=== PATIENT | female | born 1970 | race African-American/Black ===

== ENCOUNTER 2017-10-09 14:46 | Observation (INO) ==
[2017-10-09] MEDS ORDERED: 0.9 % Sodium Chloride 1,000 ML IVC ONE (14:58)
--- NOTE | 2017-10-09 15:20 | Emergency Department Note ---
Disposition Clinical Impression: Bradycardia, Dizziness Disposition: Admitted As Inpatient Condition: Good Referrals: Nai Burns MD [Non-Partnered Physician] - Forms: ED Satisfaction Letter Time of Disposition: 16:30 General Adult HPI - General Chief complaint: ED Arrhythmia/Palpitations Stated complaint: bradycardia Time Seen by Provider: 10/09/17 14:52 Source: patient, family Mode of arrival: ambulatory Limitations: no limitations Nursing Notes Reviewed: Yes Vital Signs Reviewed: Yes - History of Present Illness HPI Narrative: 47 year old female presented to the emergency department with chief complaint of bradycardia. Patient states she saw her primary care physician yesterday who completed an EKG and was told she was bradycardic. He was told to come to the emergency department but she was asymptomatic therefore she did not. Today while at work she was lifting up dough and started feeling dizzy and having chest pain. She states is the first time she has had symptoms. She is asymptomatic now. She states she does have rheumatoid arthritis but no other significant past medical history. She denies any other cardiac history. Pain Scale: 0 - Related Data Home Medications Medication Instructions Recorded Confirmed Folic Acid 1 mg PO DAILY 10/09/17 10/09/17 Methotrexate [Otrexup] 20 mg PO QWEEK 10/09/17 10/09/17 Allergies Allergy/AdvReac Type Severity Reaction Status Date / Time No Known Allergies Allergy Verified 10/09/17 14:46 All systems ED: reviewed and negative except as stated. Constitutional: Denies: fever, chills Eyes: Reports: as per HPI ENT ED: Reports: as per HPI Cardiovascular: Reports: chest pain. Denies: palpitations Respiratory: Denies: cough, dyspnea, wheezes Gastrointestinal: Denies: abdominal pain, nausea, vomiting Genitourinary: Reports: as per HPI Musculoskeletal: Reports: as per HPI Integumentary: Denies: rash, abrasion Neurological: Reports: as per HPI Psychiatric: Reports: as per HPI Endocrine: Reports: as per HPI Hematological/Lymphatic: Reports: as per HPI Allergic/Immunologic: Reports: as per HPI Past Medical History - Past Medical History Attestation: Yes The following information was validated with the patient. Medical history: Reports: arthritis Psychiatric history: Reports: anxiety OUTDOOR RECREATION SPECIALIST history: Reports: no OUTDOOR RECREATION SPECIALIST history - Social History Smoking Status: Current every day smoker Smokeless Tobacco Status: No Alcohol use: Reports: occasionally Drug use: Reports: marijuana Physical Exam - General Limitations: no limitations General appearance: alert, in no apparent distress - Head Head exam: atraumatic, normocephalic, normal inspection - Eye Eye exam: Present: normal appearance. Absent: scleral icterus, conjunctival injection - Chest Chest inspection: Present: normal inspection, symmetric chest wall rise. Absent : tenderness, rash - Respiratory Respiratory exam: Present: normal lung sounds bilaterally. Absent: respiratory distress, wheezes - Cardiovascular Cardiovascular exam: Present: normal rhythm, bradycardia, normal heart sounds - Abdominal Exam Abdominal exam: Present: soft, Non-Tender. Absent: distention, guarding, rebound - Extremities Exam Extremities exam: Present: normal inspection, full ROM - Neurological Exam Neurological exam: Present: alert, oriented X3 - Psychiatric Psychiatric exam: Present: normal affect, normal mood - Skin Skin exam: Present: warm, intact Course Course Narrative: 47-year-old female presenting to the emergency Department chief complaint of symptomatic bradycardia. Patient's heart rate 49 in the room. She denies any complaints or symptoms at this time. We will obtain basic labs including troponin and a chest x-ray. Disposition most likely will be admission due to the symptomatic bradycardia. Patient is alert and oriented 3 in the room. She is bradycardic but vital signs are otherwise stable. She agrees to this plan. - Reevaluation(s) Reevaluation #1: All of patient's lab work within normal limits. Chest x-ray within normal limits. We will admit the patient this time for symptomatic bradycardia. She is alert and oriented 3 in the room with stable vital signs throughout her stay. She has been asymptomatic throughout her ER stay. She agrees with this plan. I spoke with the hospitalist on-call Dr. Rodriguez who agrees to accept the patient at this time. Vital Signs Temperature 97.9 F 10/09/17 14:47 Pulse Rate 51 10/09/17 14:47 Respiratory Rate 15 10/09/17 14:47 Blood Pressure 161/107 10/09/17 14:47 O2 Sat by Pulse Oximetry 100 10/09/17 14:47 Temperature 97.9 F 10/09/17 14:47 Pulse Rate 43 10/09/17 15:30 Respiratory Rate 16 10/09/17 15:30 Blood Pressure 151/106 10/09/17 15:30 O2 Sat by Pulse Oximetry 100 10/09/17 15:30 Oxygen Delivery Oxygen Delivery Room Air Medical Decision Making - Lab Data Result diagrams: 10/09/17 15:23 10/09/17 15:23 Lab Results 10/09/17 10/09/17 10/09/17 Range/Units 15:23 15:23 15:23 WBC 5.1 (4.3-11.1) K/mcL RBC 4.08 (3.82-4.97) M/mcL Hgb 12.6 (11.5-15.4) g/dL Hct 38.7 (35.3-44.9) % MCV 94.9 (83.0-100.0) fL MCH 30.9 (28.0-33.3) pg MCHC 32.6 (31.6-35.5) g/dL RDW 15.5 H (11.5-14.5) % Plt Count 207 (140-400) K/mcL MPV 10.1 (9.4-12.4) fL Immature Gran % 0.2 (0-4) % Seg Neutrophils % 55.5 % Lymphocytes % 35.0 % Monocytes % 7.9 % Eosinophils % 1.0 % Basophils % 0.4 % Neutrophils # 2.8 (1.6-8.9) K/mcL Lymphocytes # 1.8 (0.6-4.6) K/mcL Monocytes # 0.4 (0.0-1.3) K/mcL Eosinophils # 0.1 (0.0-0.6) K/mcL Basophils # 0.0 (0.0-0.2) K/mcL Sodium 137 (136-145) mEq/L Potassium 3.9 (3.5-4.5) mEq/L Chloride 104 (98-109) mEq/L Carbon Dioxide 27 (19-29) mEq/L BUN 13 (7-20) mg/dL Creatinine 0.87 (0.57-1.11) mg/dL Est GFR ( Amer) > 60 (> 60) Est GFR (Non-Af Amer) > 60 (> 60) BUN/Creatinine Ratio 15 (6-26) Glucose 91 (70-99) mg/dL Calculated Osmolality 284 (280-300) Calcium 8.8 (8.6-10.8) mg/dL Magnesium 1.8 (1.6-2.6) mg/dL Troponin I 0.01 (0-0.03) ng/mL TSH 0.936 (0.350-4.840) mcIU/mL - EKG Data EKG #1 EKG attestation: Yes I reviewed and interpreted this EKG. EKG results narrative: Sinus bradycardia. Occasional PVCs. 49 bpm. IA interval 195, QRS 101, QTc 408. No signs of acute ST segment elevation or ischemia noted.
[2017-10-09 15:28] LABS: Basophils % 0.4 %; Eosinophils # 0.1 K/mcL (0.0-0.6); Hematocrit 38.7 % (35.3-44.9); Hemoglobin 12.6 g/dL (11.5-15.4); Immature Granulocytes % 0.2 % (0-4); Lymphocytes # 1.8 K/mcL (0.6-4.6); Mean Corpuscular HGB Conc 32.6 g/dL (31.6-35.5); Mean Corpuscular Hemoglobin 30.9 pg (28.0-33.3); Mean Corpuscular Volume 94.9 fL (83.0-100.0); Mean Platelet Volume 10.1 fL (9.4-12.4); Monocytes # 0.4 K/mcL (0.0-1.3); Monocytes % 7.9 %; Neutrophils # 2.8 K/mcL (1.6-8.9); Platelet Count 207 K/mcL (140-400); Red Blood Count 4.08 M/mcL (3.82-4.97); Red Cell Distribution Width 15.5 % (11.5-14.5); Segmented Neutrophils % 55.5 %
[2017-10-09 15:39] LABS: BUN/Creatinine Ratio 15 (6-26); Blood Urea Nitrogen 13 mg/dL (7-20); Calcium 8.8 mg/dL (8.6-10.8); Carbon Dioxide 27 mEq/L (19-29); Chloride 104 mEq/L (98-109); Glucose 91 mg/dL (70-99); Magnesium 1.8 mg/dL (1.6-2.6); Osmolality,Calculated 284 (280-300); Potassium 3.9 mEq/L (3.5-4.5); Sodium 137 mEq/L (136-145); eGFR For African Americans > 60 (> 60); eGFR For Non-African Americans > 60 (> 60)
--- NOTE | 2017-10-09 15:46 | Emergency Department Note ---
START Narrative - START START: I examined this patient and my medical decision-making was reviewed with the Resident Physician. I agree with the documented findings, disposition and treatment plan as described except to the extent set forth below. 47-year-old female presents to ER with bradycardia. Patient's heart rate was found to be in the 40s and she was symptomatic with this earlier. No history of heart problems. Denies any supplements. No medications for her heart that would affect her heart rate. No illness. No other complaints other than she feels slightly weak and dizzy with this low heart rate. Patient will need to be admitted as her heart rate has been in the 40s at times. She has no documented history of this in the past. Anticipate observation.
[2017-10-09 16:02] LABS: Thyroid Stimulating Hormone 0.936 mcIU/mL (0.350-4.840)
[2017-10-09] MEDS ORDERED: Ondansetron 4 MG/2 ML VIAL IVP PRN (17:48)
[2017-10-09] MEDS ORDERED: *HR* Morphine 2 MG/ML SYRINGE IVP PRN (17:48)
[2017-10-09] MEDS ORDERED: Naloxone 0.4 MG/ML INJ IVP PRN (17:48)
--- NOTE | 2017-10-09 17:57 | Internal Med History&Physical ---
<Chang Sánchez J - Last Filed: 10/09/17 17:54> Date of Encounter: 10/09/17 Time of Encounter: 17:54 Assessment and Plan (1) Bradycardia Current visit: Yes Status: Acute Rhythm remains sinus, She is no longer symptomatic, and is hemodynamically stable. Consulted cardiology, spoke with Dr. Schneider agrees to see patient in the morning. Continue with discussed cardiac workup including echocardiogram, stress test in the morning Trend troponins, nothing by mouth after midnight Continuous telemetry, continuous O2 monitoring (2) Chest pain Current visit: Yes Status: Acute She reports a one time event of left-sided sharp chest pain with radiation to mid back. She reports that the chest pain subsided prior to arrival, and has not returned. No history of prior DE. She does report a remote history of CHF she says was caused by previous substance abuse. She denies any current substance abuse, has not had any recent cardiac workup. See plan above Qualifiers: Chest pain type: unspecified Qualified Code(s): R07.9 - Chest pain, unspecified (3) Dizziness Current visit: Yes Status: Acute Has resolved since admission. (4) HTN (hypertension) Current visit: Yes Status: Acute Reports no prior history of hypertension. She has been hypertensive since her arrival, systolic blood pressures in the 160s and 170s. We will continue to monitor and trend blood pressure. Start hydralazine IV push 5 mg every 6 hours when necessary for SBP greater than 160 Qualifiers: Hypertension type: essential hypertension Qualified Code(s): I10 - Essential (primary) hypertension (5) DVT prophylaxis Current visit: Yes Status: Acute Heparin 5000 units subcutaneous twice a day Internal Medicine - H&P: HPI Chief complaint: Chest pain and new symptomatic bradycardia Admitted From: Home Plans for Post Hospital Care: Home History of present illness: Ms. Crabtree is a 47 year old female with past medical history of rheumatoid arthritis and anxiety and congestive heart failure. She is a current daily half pack per day smoker for the last 25 years and daily marijuana user as well as occasional drinker. She reports that yesterday while at her primary care provider's office for regular checkup she was found to be bradycardic. She was advised to go to the emergency room at that time and instead went home as she was asymptomatic. She reports that today while at work she began feeling dizzy and experienced some left-sided sharp chest pain with radiation to the back. She reports chest pain lasted just a few short minutes has since subsided. She has decided to come to the emergency department further workup and evaluation. She denies any diaphoresis, nausea, extremity swelling, syncope or SOB. D/T new symptomatic bradycardia, CP h/o CHF she is being admitted for continued workup and observation. Past Med Surg Social Fam HX - Past Medical History Medical history: arthritis Psychiatric history: anxiety - Social History Smoking Status: Current every day smoker Smokeless Tobacco Status: No Alcohol use: occasionally Drug use: marijuana - Additional Family History Additional family history: Noncontributory Internal Medicine - H&P: Meds Folic Acid 1 mg PO DAILY 10/09/17 [History] Methotrexate [Otrexup] 20 mg PO QWEEK 10/09/17 [History] 3 Allergy/AdvReac Type Severity Reaction Status Date / Time No Known Allergies Allergy Verified 10/09/17 14:46 All Systems PM: A 10-system review of systems was performed and is negative for pertinent findings except as documented above in the HPI. - Constitutional Constitutional: no chills, no fever(s), no night sweats - EENT Eyes: no change in vision, no discharge, no pain, no photophobia Ears: no ear discharge, no ear pain, no tinnitus Nose, mouth and throat: no dysphagia, no nasal discharge, no neck pain, no sore throat - Cardiovascular Cardiovascular ROS IM: as per HPI, lightheadedness, no chest pain - Respiratory Respiratory: no cough, no dyspnea, no wheezing, no excessive phlegm production - Gastrointestinal Gastrointestinal: no abdominal pain, no diarrhea, no hematemesis, no hematochezia, no melena, no nausea, no vomiting - Genitourinary Genitourinary: no change in urinary stream, no dysuria, no flank pain, no hematuria - Musculoskeletal Musculoskeletal ROS IM: no numbness, no tingling - Integumentary Integumentary IM: no rash, no unusual bruising - Neurological Neurological ROS: no confusion, no convulsions, no focal weakness, no numbness, no tingling, no tremor(s) - Hematologic/Lymphatic Hematologic/Lymphatic: no easy bruising - Constitutional Vitals: Temp Pulse Resp BP Pulse Ox 97.9 F 55 16 168/104 98 10/09/17 17:14 10/09/17 17:14 10/09/17 17:14 10/09/17 17:14 10/09/17 17:14 General appearance: Present: cooperative, A&O X 3, no acute distress, answers questions appropriately - Head Head exam: Present: atraumatic, normocephalic - Eye Eye exam: Present: PERRL - Neck Neck exam general surgery: Present: supple, trachea midline. Absent: lymphadenopathy - Respiratory Respiratory exam: Present: CTAB. Absent: accessory muscle use, chest wall tenderness, rales, respiratory distress, rhonchi, wheezes - Cardiovascular Cardiovascular exam: Present: bradycardia, RRR, +S1, +S2. Absent: diastolic murmur, gallop, rubs, systolic murmur - GI/Abdominal GI/Abdominal exam: Present: normal bowel sounds, soft, no peritoneal signs. Absent: distended, tenderness - Extremities Exam Extremities exam: Present: warm, radial pulses palpable and symmetrical. Absent : calf tenderness, cyanotic, pedal edema - Neurological Exam Neurological exam: Present: CN II-XII intact, oriented X3, no focal deficits. Absent: pronater drift, facial droop, speech deficit - Skin Skin exam: Present: dry, intact Internal Med - H&P Results - Labs CBC & Chem 7: 10/09/17 15:23 10/09/17 15:23 - EKG Data -: EKG Interpreted by Myself EKG shows normal: sinus rhythm Rate: bradycardia - EKG Data Prior EKG available for review: yes - Diagnostic Studies Chest x-ray Status: image reviewed by me Additional comments: No acute pulmonary process <Carito Rodriguez - Last Filed: 10/10/17 07:42> Date of Encounter: 10/10/17 Internal Medicine - H&P: HPI History of present illness: Ms. Crabtree is a 47 year old female All Systems PM: A 10-system review of systems was performed and is negative for pertinent findings except as documented above in the HPI. - Constitutional Vitals: Temp Pulse Resp BP Pulse Ox 98.0 F 51 15 138/88 97 10/10/17 07:00 10/10/17 07:00 10/10/17 07:00 10/10/17 07:00 10/10/17 07:00 Internal Med - H&P Results - Labs CBC & Chem 7: 10/10/17 02:54 10/10/17 02:54 Labs: Short CBC 10/10/17 Range/Units 02:54 WBC 5.4 (4.3-11.1) K/mcL Hgb 12.9 (11.5-15.4) g/dL Hct 38.9 (35.3-44.9) % Plt Count 190 (140-400) K/mcL BMP 10/10/17 02:54 Sodium 139 Potassium 3.8 Chloride 107 Carbon Dioxide 24 BUN 11 Creatinine 0.77 Glucose 95 Calcium 9.2 Cardiac Enzymes 10/09/17 10/10/17 Range/Units 20:46 02:54 Troponin I 0.01 0.00 (0-0.03) ng/mL - Attending Attestation 47yo female who presents with symptomatic bradycardia, continue cardiac monitoring, follow cardiology recommendations, check Echo. We will resume home meds as deemed appropriated. I have examined patient and agree with [employer] documentation.
[2017-10-09] MEDS ORDERED: *HR* Methotrexate 2.5 MG TABLET PO ONE (18:45)
[2017-10-09] MEDS: *HR* Heparin 5,000 UNIT/ML VIAL SQ SCH (18:48)
[2017-10-10 03:18] LABS: Hematocrit 38.9 % (35.3-44.9); Hemoglobin 12.9 g/dL (11.5-15.4); Mean Corpuscular HGB Conc 33.2 g/dL (31.6-35.5); Mean Corpuscular Hemoglobin 31.2 pg (28.0-33.3); Mean Platelet Volume 9.9 fL (9.4-12.4); Platelet Count 190 K/mcL (140-400); Red Blood Count 4.14 M/mcL (3.82-4.97); Red Cell Distribution Width 15.2 % (11.5-14.5)
[2017-10-10 03:33] LABS: BUN/Creatinine Ratio 14 (6-26); Blood Urea Nitrogen 11 mg/dL (7-20); Calcium 9.2 mg/dL (8.6-10.8); Carbon Dioxide 24 mEq/L (19-29); Chloride 107 mEq/L (98-109); Glucose 95 mg/dL (70-99); Osmolality,Calculated 287 (280-300); Potassium 3.8 mEq/L (3.5-4.5); Sodium 139 mEq/L (136-145); eGFR For African Americans > 60 (> 60); eGFR For Non-African Americans > 60 (> 60)
[2017-10-10] MEDS: *HR* Heparin 5,000 UNIT/ML VIAL SQ SCH ×2 (06:28→17:37)
[2017-10-10] MEDS ORDERED: Regadenoson 0.4 MG/5 ML SYRINGE IVP ONE (08:53)
--- NOTE | 2017-10-10 10:32 | Cardiology Consult Note ---
Date of Encounter: 10/10/17 Time of Encounter: 10:23 Assessment and Plan (1) Bradycardia Current Visit: Yes Status: Acute Patient seen to have HR in the 40's on presentation with dizziness. Telemetry review shows AVg HR 56 bpm. Min HR was 46 bpm at 0530. Lowest HR seen during daytime hours was 45 bpm at 1730 yesterday. HR now 70-80. Multiple PVC seen. Occasional trigemeny and bigemeny. No runs of NSVT. No pauses. She is not on AV finesse lanie. TTE and exercise stress test pending. TSH normal. Avoid AV finesse blockers. Further recommendation to follow. (2) Chest pain Current Visit: Yes Status: Acute Atypical chest pain symptoms. Troponin negative x3. EKG with no acute ST changes. Stress test and TTE pending. Aggressive risk factor modification. Smoking cessation and better blood pressure control. Healthy heart diet and exercise recommended. Further recommendations to follow. Qualifiers: Chest pain type: unspecified Qualified Code(s): R07.9 - Chest pain, unspecified (3) PVC (premature ventricular contraction) Current Visit: Yes Status: Acute Noted to have frequent PVC. Will hold off on BB due to bradycardia. (4) HTN (hypertension) Current Visit: Yes Status: Acute New diagnosis of hypertension. On IV hydralizine. Add norvasc. Qualifiers: Hypertension type: essential hypertension Qualified Code(s): I10 - Essential (primary) hypertension Discussion w patient/family: The assessment and plan as outlined above was discussed with the patient and/or family members who expressed understanding and agreement. All questions were answered. Thank you for involving us in the care of your patient. Please call with any questions. History of Present Illness Consult date: 10/10/17 Requesting physician: Carito Rodriguez Consult reason: bradycardia Chief complaint: Chest pain and dizziness History of present illness: Ms. Crabtree is a 47 year old female with a past medical history significant for RA, tobacco use for 25 years, CHF secondary to previous drug use who presented with dizziness and chest pain. She c/o left sided chest pain starting in her lower chest radiating to her axillary and back. The pain was 10/10 and sharp. She was working at the time and reported frequent bending and lifting. Proceeding the chest pain she experienced dizziness and lightheadedness. She was seen by her PCP two days earlier and found to have low heart rates. She was recommended to go to the ER for evaluation but declined at that time. HR seen as low as 41 beats per minutes during daytime hours. HR now in the 70- 80. B/p also found to be elevated up to 180/100. Cardiac work-up included troponin that was negative x 3. Stress test and echo is pending. She is currently pain free. Past Med Surg Social Fam HX - Past Medical History Attestation: Yes The following information was validated with the patient. Medical history: arthritis Psychiatric history: anxiety - Social History Smoking Status: Current every day smoker Packs per day: .5 for 25 years Smokeless Tobacco Status: No Alcohol use: occasionally Drug use: marijuana Medications and Allergies Folic Acid 1 mg PO DAILY 10/09/17 [History] Methotrexate [Otrexup] 20 mg PO QWEEK 10/09/17 [History] 3 Allergy/AdvReac Type Severity Reaction Status Date / Time No Known Allergies Allergy Verified 10/09/17 14:46 All Systems Review: A 10-system review of systems was performed and is negative for pertinent findings except as documented above in the HPI. Physical Examination Vital Signs, Last 4 Hours Temp Pulse Resp BP Pulse Ox 10/10/17 07:00 98.0 F 51 15 138/88 97 General: Conversant, No Apparent Distress HEENT: Atraumatic, Normocephaly, Mucus Membranes Moist Neck: No JVD, Normal carotid pulses Cardiac: Reg Rate and Rhythm, Normal S1 and S2, No Murmur, Other (SR with frequent PVC) Lungs: Normal Breath Sounds, No Wheeze, Rales, Rhonchi Neuro: Alert and responsive, No focal deficits noted Abdomen: Soft, Non-Tender Skin: No rashes noted on visualized skin Musculoskeletal: No Chest Wall Tenderness Extremities: No Clubbing, No Cyanosis, No Edema, Normal Pulses Results 10/10/17 02:54 10/10/17 02:54 Lab Results 10/09/17 10/10/17 10/10/17 20:46 02:54 02:54 WBC 5.4 Hgb 12.9 Hct 38.9 Plt Count 190 Sodium Potassium Chloride Carbon Dioxide BUN Creatinine Glucose Calcium Troponin I 0.01 0.00 10/10/17 02:54 WBC Hgb Hct Plt Count Sodium 139 Potassium 3.8 Chloride 107 Carbon Dioxide 24 BUN 11 Creatinine 0.77 Glucose 95 Calcium 9.2 Troponin I - Imaging and Cardiology Stress Test: pending Echo: pending - EKG Interpretation EKG results cardiology: personally reviewed (EKG seen in stress labb shows SR with trigemeny. No acute ST changes.) Consult Discharge Plan - Plan Referrals: NONE,PCP [Primary Care Provider] -
[2017-10-10] MEDS: amLODIPine 5 MG TABLET PO SCH (12:39)
[2017-10-10] MEDS: Folic Acid 1 MG TABLET PO SCH (12:39)
--- NOTE | 2017-10-10 14:15 | Internal Med Progress Note ---
Date of Encounter: 10/10/17 Time of Encounter: 14:11 - Assessment and plan (1) HTN (hypertension) Current Visit: Yes Status: Acute Assessment and plan: Uncontrolled BP but remains clinically asymptomatic continue Amlodipine and Lisinopril Hydralazine prn closely monitor BP Qualifiers: Hypertension type: essential hypertension Qualified Code(s): I10 - Essential (primary) hypertension (2) Bradycardia Current Visit: Yes Status: Resolved Assessment and plan: resolved at this time continue to avoid AV finesse blockers outpatient cardiology follow up recommended (3) Chest pain Current Visit: Yes Status: Resolved Assessment and plan: s/p nuclear stress test: negative for ischemic perfusion defect Qualifiers: Chest pain type: unspecified Qualified Code(s): R07.9 - Chest pain, unspecified (4) DVT prophylaxis Current Visit: Yes Status: Acute Assessment and plan: Heparin SQ (5) PVC (premature ventricular contraction) Current Visit: Yes Status: Acute Assessment and plan: clinically asymptomatic no further intervention recommended by cardiology - Subjective Interval history: Patient seen and examined at bedside. Denies any discomfort at this time s/p nuclear stress test which was negative for any ischemic perfusion defect Cardiology evaluated the patient and no further inpatient recommendations Discharge pending better BP control. Pt remains to be sustaining DBP >100 despite Amlodipine will start on lisinopril 5mg PO qd tentative d/c in am pending better BP control - Constitutional Vitals: Temp Pulse Resp BP Pulse Ox 98.0 F 71 15 157/105 98 10/10/17 11:28 10/10/17 11:28 10/10/17 11:28 10/10/17 11:28 10/10/17 11:28 General appearance: Present: cooperative, A&O X 3, pleasant, no acute distress, obese, answers questions appropriately - Head Head exam: Present: atraumatic, normocephalic - Eye Eye exam: Present: conjuntiva pink, sclera anicteric - Respiratory Respiratory exam: Present: CTAB. Absent: accessory muscle use, rales, rhonchi, wheezes - Cardiovascular Cardiovascular exam: Present: RRR, +S1, +S2. Absent: diastolic murmur, gallop, rubs, systolic murmur - GI/Abdominal GI/Abdominal exam: Present: normal bowel sounds, soft, no peritoneal signs. Absent: distended, tenderness - Extremities Exam Extremities exam: Present: warm, radial pulses palpable and symmetrical. Absent : calf tenderness, cyanotic, pedal edema - Neurological Exam Neurological exam: Present: alert, oriented X3 - Psychiatric Psychiatric exam: Present: normal affect, normal mood Internal Medicine: Result - Labs CBC & Chem 7: 10/10/17 02:54 10/10/17 02:54 Labs: Short CBC 10/10/17 Range/Units 02:54 WBC 5.4 (4.3-11.1) K/mcL Hgb 12.9 (11.5-15.4) g/dL Hct 38.9 (35.3-44.9) % Plt Count 190 (140-400) K/mcL BMP 10/10/17 02:54 Sodium 139 Potassium 3.8 Chloride 107 Carbon Dioxide 24 BUN 11 Creatinine 0.77 Glucose 95 Calcium 9.2 Cardiac Enzymes 10/09/17 10/10/17 Range/Units 20:46 02:54 Troponin I 0.01 0.00 (0-0.03) ng/mL - Impressions Impressions Echocardiogram 10/10/17 17:45 Impressions: Sinus bradycardia. HR 40s. Frequent PVCs. LVEF 55%. Normal LV chamber size, wall thickness and function. Moderate left ventricular diastolic dysfunction. Normal right ventricular structure and function. Unable to estimate RVSP due to lack of TR jet. No significant valvular dysfunction. Left Ventricular Wall Motion: Rest Echo Findings All wall segments showed normal motion. Findings: Study Quality * Technically adequate exam. ECG Findings * Sinus bradycardia. HR 40s. Frequent PVCs. Left Ventricle * LVEF 55%. * Normal LV chamber size, wall thickness and function. * Moderate left ventricular diastolic dysfunction. Right Ventricle * Normal right ventricular structure and function. Left Atrium * Moderately dilated left atrium. Right Atrium * Mildly dilated right atrium. Aortic Valve * Aortic valve not well visualized. * No aortic regurgitation. * No aortic stenosis. Mitral Valve * Normal mitral valve structure and function. * No mitral regurgitation. * No mitral stenosis. Tricuspid Valve * Normal tricuspid valve structure and function. * No tricuspid regurgitation. * Unable to estimate RVSP due to lack of TR jet. Pulmonic Valve * Pulmonic valve is not well visualized. * No pulmonic regurgitation. Aorta * Normally sized aortic root. Pericardium * The pericardium appears normal. IVC * Normal IVC dimensions and inspiratory collapse. Pulmonary Artery * Normal visualized portions of the main pulmonary artery. Consult Discharge Plan - Plan Referrals: NONE,PCP [Primary Care Provider] -
--- NOTE | 2017-10-10 16:37 | Electrocardiograph Report ---
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
[2017-10-11] MEDS: *HR* Heparin 5,000 UNIT/ML VIAL SQ SCH (05:40)
[2017-10-11 07:42] VITALS: BP 125/94
[2017-10-11] MEDS: Folic Acid 1 MG TABLET PO SCH (08:41)
[2017-10-11] MEDS: amLODIPine 5 MG TABLET PO SCH (08:41)
--- NOTE | 2017-10-11 12:30 | Discharge Summary ---
Date of Encounter: 10/11/17 Time of Encounter: 12:25 - Discharge Diagnosis (1) Bradycardia Priority: Primary Status: Acute (2) HTN (hypertension) Priority: Primary Status: Acute Qualifiers: Hypertension type: essential hypertension Qualified Code(s): I10 - Essential (primary) hypertension (3) PVC (premature ventricular contraction) Priority: Primary Status: Acute - Discharge Medications Prescriptions: amLODIPine [Norvasc] 5 mg PO DAILY 30 Days #30 tablet Lisinopril 5 mg PO DAILY #30 tablet Home Medications: Folic Acid 1 mg PO DAILY 10/09/17 [History] Methotrexate [Otrexup] 20 mg PO QWEEK 10/09/17 [History] Lisinopril 5 mg PO DAILY #30 tablet 10/11/17 [Rx] amLODIPine [Norvasc] 5 mg PO DAILY 30 Days #30 tablet 10/11/17 [Rx] Allergies/Adverse Reactions: 3 Allergy/AdvReac Type Severity Reaction Status Date / Time No Known Allergies Allergy Verified 10/09/17 14:46 Procedures/tests Complete & Pending: Procedures Performed prior 72 hours Category Date Time Status NM lakisha perf SPECT multi [NM] Routine Exams 10/10/17 09:02 Taken EV echocardiogram Routine Y 10/10/17 17:45 Completed SP exercise nuclear stress Routine Y 10/10/17 09:02 Completed Date of admission: 10/09/17 16:42 Primary care physician: PCP NONE Consults: 10/09/17 17:47 Consult to Cardiology [CONS] Routine Comment: Consulting Provider: Cardiology Radha Reason for Consult: CP, new symptomatic bradycardia Time Notified: 17:48 Call Completed: Yes - Patient Status Disposition: Home, Self-Care Condition: Good - Discharge Instructions Instructions: Chest Pain (DC), Chronic Hypertension (DC), Bradycardia (DC), Bradycardia (GEN) Follow Up With: NONE,PCP [Primary Care Provider] - Hospital course: Ms. Crabtree is a 47 year old female with past medical history of rheumatoid arthritis and anxiety and congestive heart failure. She is a current daily half pack per day smoker for the last 25 years and daily marijuana user as well as occasional drinker. She presented with bradycardia and dizziness, she had a stress test and was seen by cardiology. Stress test was within normal limits and bradycardia is resolved. She was started on lisinopril and norvasc for HTN. She will follow up with cardio outpatient. She will also be considered for a Holter monitor when she follows with cardiology. - Time Spent with Patient Total time spent providing and/or coordinating discharge services: - Constitutional Vitals: Temp Pulse Resp BP Pulse Ox 98.1 F 75 15 125/94 98 10/11/17 07:41 10/11/17 07:41 10/11/17 07:41 10/11/17 07:41 10/11/17 07:41 General appearance: Present: cooperative, A&O X 3, pleasant, no acute distress, obese, answers questions appropriately - Head Head exam: Present: atraumatic, normocephalic - Eye Eye exam: Present: PERRL, conjuntiva pink, sclera anicteric Pupils: Present: PERRL - Neck Neck exam general surgery: Present: supple, trachea midline. Absent: lymphadenopathy - Respiratory Respiratory exam: Present: CTAB. Absent: accessory muscle use, rales, rhonchi, wheezes - Cardiovascular Cardiovascular exam: Present: RRR, +S1, +S2. Absent: diastolic murmur, gallop, rubs, systolic murmur - GI/Abdominal GI/Abdominal exam: Present: normal bowel sounds, soft, no peritoneal signs. Absent: distended, tenderness - Extremities Exam Extremities exam: Present: warm, radial pulses palpable and symmetrical. Absent : calf tenderness, cyanotic, pedal edema - Neurological Exam Neurological exam: Present: CN II-XII intact, oriented X3, no focal deficits. Absent: pronater drift, facial droop, speech deficit - Skin Skin exam: Present: dry, intact
[2017-10-16] MEDS ORDERED: *HR* Methotrexate 2.5 MG TABLET PO SCH (09:00)
== END 2017-10-11 12:30 | disposition home or self-care (01) ==
LOC: 2NENU 14:46 → EMEROO 14:46 → 2NENU 16:47
PROVIDERS: ADMIT Internal Medicine; ATTEND Internal Medicine

== ENCOUNTER 2019-06-04 23:47 | Observation (INO) ==
[2019-06-05 00:51] LABS: Basophils % 0.5 %; Eosinophils # 0.1 K/mcL (0.0-0.6); Eosinophils % 0.8 %; Hemoglobin 12.2 g/dL (11.5-15.4); Immature Granulocytes % 0.6 % (0-4); Lymphocytes # 1.9 K/mcL (0.6-4.6); Lymphocytes % 21.4 %; Mean Corpuscular Volume 90.9 fL (83.0-100.0); Mean Platelet Volume 9.4 fL (9.4-12.4); Monocytes # 0.9 K/mcL (0.0-1.3); Monocytes % 9.9 %; Neutrophils # 5.9 K/mcL (1.6-8.9); Platelet Count 328 K/mcL (140-400); Red Blood Count 4.07 M/mcL (3.82-4.97); Red Cell Distribution Width 15.2 % (11.5-14.5); Segmented Neutrophils % 66.8 %; White Blood Count 8.8 K/mcL (4.3-11.1)
[2019-06-05 01:00] LABS: Prothrombin Time 11.8 Seconds (9.4-12.1)
[2019-06-05 01:02] LABS: Activated Partial Thrombo Time 25.4 Seconds (26.0-36.0)
[2019-06-05 01:11] LABS: BUN/Creatinine Ratio 13 (6-26); Blood Urea Nitrogen 11 mg/dL (6-20); Calcium 8.4 mg/dL (8.6-10.3); Carbon Dioxide 28 mEq/L (23-29); Chloride 102 mEq/L (98-107); Glucose 113 mg/dL (70-105); Osmolality,Calculated 286 (280-300); Sodium 138 mEq/L (136-145); eGFR For African Americans > 60 (> 60); eGFR For Non-African Americans > 60 (> 60)
[2019-06-05 01:13] LABS: Troponin I < 0.03 ng/mL (< 0.04)
[2019-06-05] MEDS ORDERED: Isovue-370 500 ML BOTTLE IVP ONE (02:30)
[2019-06-05] MEDS ORDERED: Ipratropium/Albuterol Neb 3 ML IH ONE (03:55)
[2019-06-05 03:59] LABS: Bilirubin,Urine Negative (Negative); Blood,Urine Negative (Negative); Clarity,Urine Clear (Clear); Color,Urine Yellow (Yellow); Glucose,Urine (UA) Normal (Normal); Ketones,Urine Negative (Negative); Leukocyte Esterase,Urine Negative (Negative); Nitrite,Urine Negative (Negative); PH,Urine 5.5 pH Units (5.0-8.0); Protein,Urine Trace mg/dL (Neg-Trace); Specific Gravity,Urine > 1.030 (1.010-1.025); Urobilinogen,Urine Normal (Normal)
[2019-06-05] MEDS ORDERED: Naloxone 0.4 MG/ML INJ IVP PRN (06:21)
[2019-06-05] MEDS ORDERED: Albuterol 2.5 MG/3 ML NEBULIZER IH PRN (07:07)
[2019-06-05] MEDS ORDERED: Nicotine 21 MG PATCH.TD24 TD PRN (07:11)
[2019-06-05] MEDS ORDERED: *HR* Methotrexate 2.5 MG TABLET PO SCH (07:45)
[2019-06-05 08:17] LABS: Alanine Aminotransferase 25 Units/L (7-52); Albumin 3.2 g/dL (3.5-5.7); Alkaline Phosphatase 83 Units/L (34-104); Aspartate Amino Transferase 32 Units/L (13-39); BUN/Creatinine Ratio 12 (6-26); Bilirubin,Direct 0.1 mg/dL (0.0-0.2); Bilirubin,Indirect 0.2 mg/dL (0.0-1.2); Bilirubin,Total 0.3 mg/dL (0.3-1.0); Blood Urea Nitrogen 9 mg/dL (6-20); Calcium 8.1 mg/dL (8.6-10.3); Carbon Dioxide 25 mEq/L (23-29); Chloride 99 mEq/L (98-107); Globulin 3.2 g/dL (2.4-3.5); Glucose 106 mg/dL (70-105); Osmolality,Calculated 285 (280-300); Sodium 138 mEq/L (136-145); Total Protein 6.4 g/dL (6.4-8.9); eGFR For African Americans > 60 (> 60); eGFR For Non-African Americans > 60 (> 60)
[2019-06-05] MEDS: Benzonatate 100 MG CAPSULE PO SCH ×3 (08:58→21:37)
[2019-06-05] MEDS ORDERED: predniSONE 20 MG TABLET PO SCH (09:00)
[2019-06-05] MEDS: *HR* OxyCODONE/APAP 10/325 TABLET PO PRN ×2 (09:33→17:01)
[2019-06-05 11:25] LABS: Lactate Dehydrogenase 308 Units/L (140-271)
[2019-06-05] MEDS: *HR* Heparin 5,000 UNIT/ML VIAL SQ SCH (17:02)
[2019-06-06] MEDS: *HR* Heparin 5,000 UNIT/ML VIAL SQ SCH ×2 (05:42→17:35)
[2019-06-06] MEDS: Benzonatate 100 MG CAPSULE PO SCH ×3 (08:14→20:32)
[2019-06-06] MEDS: *HR* OxyCODONE/APAP 10/325 TABLET PO PRN (13:51)
[2019-06-06] MEDS: Potassium Chloride Elixir 20 MEQ/15 ML UDC PO SCH ×2 (13:55→17:35)
[2019-06-06 16:37] LABS: A.galactomannan Ag Index 0.06
[2019-06-07] MEDS: *HR* Heparin 5,000 UNIT/ML VIAL SQ SCH ×2 (05:20→17:18)
[2019-06-07 06:12] LABS: BUN/Creatinine Ratio 8 (6-26); Blood Urea Nitrogen 5 mg/dL (6-20); Calcium 8.7 mg/dL (8.6-10.3); Carbon Dioxide 27 mEq/L (23-29); Chloride 98 mEq/L (98-107); Glucose 100 mg/dL (70-105); Osmolality,Calculated 273 (280-300); Sodium 133 mEq/L (136-145); eGFR For African Americans > 60 (> 60); eGFR For Non-African Americans > 60 (> 60)
[2019-06-07] MEDS: Benzonatate 100 MG CAPSULE PO SCH ×3 (07:58→21:19)
[2019-06-07] MEDS: amLODIPine 5 MG TABLET PO SCH (11:02)
[2019-06-08] MEDS: *HR* Heparin 5,000 UNIT/ML VIAL SQ SCH (05:58)
[2019-06-08] MEDS ORDERED: *HR* FentaNYL (PF) 100 MCG/2 ML VIAL ONE (06:56)
[2019-06-08] MEDS ORDERED: *HR* Propofol 200 MG/20 ML VIAL IVP ONE (06:56)
[2019-06-08] MEDS ORDERED: *HR* Succinylcholine 200 MG/10 ML VIAL IVP ONE (07:04)
[2019-06-08] MEDS ORDERED: Ondansetron 4 MG/2 ML VIAL ONE (07:04)
[2019-06-08] MEDS ORDERED: Lidocaine -MPF 2% 2 ML VIAL ONE (07:04)
[2019-06-08] MEDS ORDERED: Dexamethasone 4 MG/ML VIAL ONE (07:04)
[2019-06-08 10:03] VITALS: BP 159/100
[2019-06-08] MEDS: Benzonatate 100 MG CAPSULE PO SCH (10:04)
[2019-06-08] MEDS: amLODIPine 5 MG TABLET PO SCH (10:04)
[2019-06-08 17:15] LABS: Appearance of Body Fluid Slightly Hazy (Clear); Volume of Body Fluid 17 mL
== END 2019-06-08 13:50 | disposition home or self-care (01) ==
LOC: EMEROOARM 23:47 → 3BNU 23:47 → SUATTDRO 06-05 04:11 → 3BNU 06-05 05:32
PROVIDERS: ADMIT Internal Medicine; ATTEND Internal Medicine

== ENCOUNTER 2022-06-02 07:46 | Inpatient (IN) ==
[2022-06-02] MEDS ORDERED: Ondansetron ODT 4 MG TAB.RAPDIS SL ONE (10:40)
[2022-06-02] MEDS ORDERED: Piperacillin/Tazobactam 3.375 GM in 0.9 % Sodium Chloride Mini Bag 100 ML IVPB ONE (11:26)
[2022-06-02] MEDS ORDERED: Morphine Sulfate 2 MG/ML SYRINGE IVP ONE (11:26)
[2022-06-02] MEDS ORDERED: Clindamycin 300 MG/50 ML 300 MG/50 ML IV.SOLN IVPB ONE (11:28)
[2022-06-02] MEDS ORDERED: Vancomycin 1,750 MG/517.5 ML IV.SOLN IVPB ONE (12:00)
[2022-06-02 12:08] LABS: Basophils # 0.1 K/mcL (0.0-0.2); Basophils % 0.3 %; Eosinophils % 0.1 %; Hematocrit 37.5 % (35.3-44.9); Hemoglobin 12.3 g/dL (11.5-15.4); Immature Granulocytes % 0.3 % (0-4); Lymphocytes # 1.2 K/mcL (0.6-4.6); Mean Corpuscular HGB Conc 32.8 g/dL (31.6-35.5); Mean Corpuscular Hemoglobin 29.5 pg (28.0-33.3); Mean Corpuscular Volume 89.9 fL (83.0-100.0); Mean Platelet Volume 9.8 fL (9.4-12.4); Monocytes % 5.6 %; Neutrophils # 15.1 K/mcL (1.6-8.9); Platelet Count 207 K/mcL (140-400); Red Blood Count 4.17 M/mcL (3.82-4.97); Red Cell Distribution Width 16.5 % (11.5-14.5); Segmented Neutrophils % 86.7 %; White Blood Count 17.4 K/mcL (4.3-11.1)
[2022-06-02 12:26] LABS: INR 1.1; Prothrombin Time 12.2 Seconds (9.4-12.1)
[2022-06-02 12:28] LABS: Activated Partial Thrombo Time 22.4 Seconds (26.0-36.0)
[2022-06-02 12:30] LABS: Alanine Aminotransferase 7 Units/L (7-52); Albumin 3.8 g/dL (3.5-5.7); Albumin/Globulin Ratio 1.3 (1.1-2.2); Alkaline Phosphatase 54 Units/L (34-104); Aspartate Amino Transferase 11 Units/L (13-39); BUN/Creatinine Ratio 14 (6-26); Bilirubin,Direct 0.1 mg/dL (0.0-0.2); Bilirubin,Indirect 0.8 mg/dL (0.0-1.0); Bilirubin,Total 0.9 mg/dL (0.3-1.0); Blood Urea Nitrogen 9 mg/dL (6-20); Calcium 8.7 mg/dL (8.6-10.3); Carbon Dioxide 25 mEq/L (23-29); Chloride 103 mEq/L (98-107); Glucose 109 mg/dL (70-105); Magnesium 1.7 mg/dL (1.6-2.6); Osmolality,Calculated 281 (280-300); Phosphorous 3.2 mg/dL (2.7-4.5); Potassium 3.4 mEq/L (3.5-5.1); Sodium 136 mEq/L (136-145); Total Protein 6.8 g/dL (6.4-8.9); Troponin I < 0.03 ng/mL (< 0.04); eGFR For African Americans > 60 (> 60); eGFR For Non-African Americans > 60 (> 60)
[2022-06-02] MEDS ORDERED: Melatonin 3 MG TABLET PO PRN (15:01)
[2022-06-02] MEDS ORDERED: Naloxone 0.4 MG/ML INJ IVP PRN (15:01)
[2022-06-02] MEDS ORDERED: *HR* HYDROmorphone (PF) 1 MG/ML SYRINGE IVP ONE (15:10)
[2022-06-02] MEDS ORDERED: Morphine Sulfate 2 MG/ML SYRINGE IVP PRN (15:59)
[2022-06-02] MEDS ORDERED: Vancomycin 1,750 MG in 0.9 % Sodium Chloride 250 ML IVPB SCH (16:00)
[2022-06-02] MEDS: BuPROPion XL (24 HR) 150 MG TABLET PO SCH (18:11)
[2022-06-02] MEDS: Acetaminophen 325 MG TABLET PO PRN (18:43)
[2022-06-02] MEDS: Piperacillin/Tazobactam 3.375 GM in 0.9 % Sodium Chloride Mini Bag 100 ML IVPB SCH (19:50)
[2022-06-02] MEDS: ARIPiprazole 5 MG TABLET PO SCH (19:51)
[2022-06-02] MEDS: *HR* Heparin 5,000 UNIT/ML VIAL SQ SCH (22:17)
[2022-06-02] MEDS: Vancomycin 1,250 MG/262.5 ML IV.SOLN IVPB SCH (23:42)
[2022-06-02] MEDS: *HR* OxyCODONE/APAP 5/325 TABLET PO PRN (23:43)
[2022-06-03] MEDS: *HR* OxyCODONE/APAP 5/325 TABLET PO PRN ×4 (04:14→23:57)
[2022-06-03] MEDS: Piperacillin/Tazobactam 3.375 GM in 0.9 % Sodium Chloride Mini Bag 100 ML IVPB SCH ×3 (04:18→20:03)
[2022-06-03] MEDS: *HR* Heparin 5,000 UNIT/ML VIAL SQ SCH ×3 (04:35→22:19)
[2022-06-03 07:24] LABS: Basophils # 0.1 K/mcL (0.0-0.2); Basophils % 0.7 %; Eosinophils # 0.1 K/mcL (0.0-0.6); Eosinophils % 0.7 %; Hematocrit 35.9 % (35.3-44.9); Hemoglobin 11.5 g/dL (11.5-15.4); Immature Granulocytes % 0.5 % (0-4); Lymphocytes # 2.2 K/mcL (0.6-4.6); Mean Corpuscular Hemoglobin 29.2 pg (28.0-33.3); Mean Corpuscular Volume 91.1 fL (83.0-100.0); Mean Platelet Volume 10.1 fL (9.4-12.4); Monocytes # 1.2 K/mcL (0.0-1.3); Monocytes % 6.7 %; Neutrophils # 13.4 K/mcL (1.6-8.9); Platelet Count 204 K/mcL (140-400); Red Blood Count 3.94 M/mcL (3.82-4.97); Red Cell Distribution Width 16.2 % (11.5-14.5); Segmented Neutrophils % 78.4 %; White Blood Count 17.1 K/mcL (4.3-11.1)
[2022-06-03 07:45] LABS: BUN/Creatinine Ratio 10 (6-26); Blood Urea Nitrogen 7 mg/dL (6-20); Calcium 8.4 mg/dL (8.6-10.3); Carbon Dioxide 30 mEq/L (23-29); Chloride 100 mEq/L (98-107); Glucose 105 mg/dL (70-105); Magnesium 1.8 mg/dL (1.6-2.6); Osmolality,Calculated 278 (280-300); Potassium 3.1 mEq/L (3.5-5.1); Sodium 135 mEq/L (136-145); eGFR For African Americans > 60 (> 60); eGFR For Non-African Americans > 60 (> 60)
[2022-06-03 08:13] LABS: Bilirubin,Urine Negative (Negative); Blood,Urine Small (Negative); Clarity,Urine Clear (Clear); Color,Urine Yellow (Yellow); Glucose,Urine (UA) Normal (Normal); Ketones,Urine Negative (Negative); Leukocyte Esterase,Urine Negative (Negative); Mucus,Urine Few per lpf (None-Few); Nitrite,Urine Negative (Negative); Protein,Urine 30 mg/dL (Neg-Trace); Specific Gravity,Urine 1.026 (1.010-1.025); Squamous Epithelial Cell,Urine Moderate per hpf (None-Few); Urobilinogen,Urine Normal (Normal); WBC,Urine 0-3 per hpf (0-3)
[2022-06-03] MEDS ORDERED: Morphine Sulfate 2 MG/ML SYRINGE IVP PRN (08:51)
[2022-06-03] MEDS: BuPROPion XL (24 HR) 150 MG TABLET PO SCH (08:51)
[2022-06-03] MEDS: Vancomycin 1,250 MG/262.5 ML IV.SOLN IVPB SCH (12:11)
[2022-06-03] MEDS: Ondansetron ODT 4 MG TAB.RAPDIS SL PRN (14:14)
[2022-06-03] MEDS ORDERED: Potassium Effervescent 25 MEQ TABLET.EFF PO ONE (17:35)
[2022-06-03] MEDS: ARIPiprazole 5 MG TABLET PO SCH (20:03)
[2022-06-03] MEDS: ETANERCEPT 50 MG/ML SUBQ SCH (23:15)
[2022-06-04] MEDS: Vancomycin 1,500 MG/265 ML IV.SOLN IVPB SCH ×2 (02:47→12:41)
[2022-06-04] MEDS: Piperacillin/Tazobactam 3.375 GM in 0.9 % Sodium Chloride Mini Bag 100 ML IVPB SCH ×2 (03:22→12:42)
[2022-06-04] MEDS: *HR* OxyCODONE/APAP 5/325 TABLET PO PRN ×3 (04:00→14:04)
[2022-06-04] MEDS: *HR* Heparin 5,000 UNIT/ML VIAL SQ SCH ×2 (04:08→13:34)
[2022-06-04] MEDS: ETANERCEPT 50 MG/ML SUBQ SCH (04:45)
[2022-06-04] MEDS: BuPROPion XL (24 HR) 150 MG TABLET PO SCH (08:13)
[2022-06-04 08:54] LABS: Basophils % 0.2 %; Eosinophils # 0.2 K/mcL (0.0-0.6); Eosinophils % 1.3 %; Hematocrit 34.5 % (35.3-44.9); Immature Granulocytes % 0.4 % (0-4); Lymphocytes # 1.2 K/mcL (0.6-4.6); Lymphocytes % 9.7 %; Mean Corpuscular HGB Conc 31.9 g/dL (31.6-35.5); Mean Corpuscular Hemoglobin 29.2 pg (28.0-33.3); Mean Corpuscular Volume 91.5 fL (83.0-100.0); Mean Platelet Volume 9.8 fL (9.4-12.4); Monocytes # 0.9 K/mcL (0.0-1.3); Monocytes % 7.6 %; Platelet Count 204 K/mcL (140-400); Red Blood Count 3.77 M/mcL (3.82-4.97); Segmented Neutrophils % 80.8 %; White Blood Count 12.3 K/mcL (4.3-11.1)
[2022-06-04 09:02] LABS: BUN/Creatinine Ratio 7 (6-26); Blood Urea Nitrogen 6 mg/dL (6-20); Calcium 8.1 mg/dL (8.6-10.3); Carbon Dioxide 32 mEq/L (23-29); Chloride 101 mEq/L (98-107); Glucose 110 mg/dL (70-105); Osmolality,Calculated 280 (280-300); Potassium 3.4 mEq/L (3.5-5.1); Sodium 136 mEq/L (136-145); eGFR For African Americans > 60 (> 60); eGFR For Non-African Americans > 60 (> 60)
[2022-06-04] MEDS ORDERED: Ondansetron 4 MG/2 ML VIAL IVP PRN (16:19)
[2022-06-04] MEDS ORDERED: *HR* HYDROmorphone PF 0.5 MG/0.5 ML SYRINGE IVP PRN (16:19)
[2022-06-04] MEDS ORDERED: Promethazine 6.25 MG in Water for inj. (sterile) 20 ML IVPB PRN (16:19)
[2022-06-04] MEDS ORDERED: *HR* OxyCODONE Immed Rel 5 MG TABLET PO PRN (16:19)
[2022-06-04] MEDS ORDERED: *HR* FentaNYL (PF) 100 MCG/2 ML VIAL ONE ×2 (17:02→18:00)
[2022-06-04] MEDS ORDERED: *HR* Midazolam HCl 2 MG/2 ML VIAL ONE (17:02)
[2022-06-04] MEDS ORDERED: *HR* Propofol 200 MG/20 ML VIAL IVP ONE (17:03)
[2022-06-04] MEDS ORDERED: Lidocaine HCL 4 ML Topical Solution (Laryng-O-Jet Kit Sterile Pak) TP ONE (17:05)
[2022-06-04] MEDS ORDERED: *HR* Rocuronium Bromide 50 MG/5 ML VIAL ONE (17:05)
[2022-06-04] MEDS ORDERED: Lidocaine -MPF 2% 5 ML VIAL ONE (17:05)
[2022-06-04] MEDS ORDERED: Ondansetron 4 MG/2 ML VIAL ONE (17:05)
[2022-06-04] MEDS ORDERED: Sugammadex Sodium 200 MG/2 ML VIAL IV ONE (18:16)
[2022-06-04] MEDS ORDERED: Ketorolac 30 MG/ML VIAL ONE (18:16)
[2022-06-05] MEDS: *HR* OxyCODONE/APAP 5/325 TABLET PO PRN ×3 (01:13→16:18)
[2022-06-05] MEDS: Piperacillin/Tazobactam 3.375 GM in 0.9 % Sodium Chloride Mini Bag 100 ML IVPB SCH ×4 (01:13→23:35)
[2022-06-05] MEDS: *HR* Heparin 5,000 UNIT/ML VIAL SQ SCH ×3 (01:15→15:43)
[2022-06-05 03:04] LABS: Basophils % 0.2 %; Hematocrit 33.3 % (35.3-44.9); Hemoglobin 10.7 g/dL (11.5-15.4); Immature Granulocytes % 0.4 % (0-4); Lymphocytes # 0.9 K/mcL (0.6-4.6); Mean Corpuscular HGB Conc 32.1 g/dL (31.6-35.5); Mean Corpuscular Hemoglobin 28.9 pg (28.0-33.3); Mean Platelet Volume 10.4 fL (9.4-12.4); Monocytes # 0.3 K/mcL (0.0-1.3); Monocytes % 2.6 %; Neutrophils # 9.8 K/mcL (1.6-8.9); Platelet Count 236 K/mcL (140-400); Red Cell Distribution Width 15.4 % (11.5-14.5); Segmented Neutrophils % 88.8 %; White Blood Count 11.1 K/mcL (4.3-11.1)
[2022-06-05 03:22] LABS: BUN/Creatinine Ratio 9 (6-26); Blood Urea Nitrogen 9 mg/dL (6-20); Calcium 8.5 mg/dL (8.6-10.3); Carbon Dioxide 28 mEq/L (23-29); Chloride 101 mEq/L (98-107); Glucose 126 mg/dL (70-105); Osmolality,Calculated 282 (280-300); Potassium 3.7 mEq/L (3.5-5.1); Sodium 136 mEq/L (136-145); eGFR For African Americans > 60 (> 60); eGFR For Non-African Americans 59 (> 60)
[2022-06-05] MEDS: Vancomycin 1,500 MG/265 ML IV.SOLN IVPB SCH ×2 (08:17→11:27)
[2022-06-06] MEDS: Vancomycin 1,500 MG/265 ML IV.SOLN IVPB SCH ×2 (01:23→12:18)
[2022-06-06] MEDS: *HR* OxyCODONE/APAP 5/325 TABLET PO PRN ×3 (02:59→19:49)
[2022-06-06] MEDS: *HR* Heparin 5,000 UNIT/ML VIAL SQ SCH ×3 (02:59→15:42)
[2022-06-06] MEDS: Piperacillin/Tazobactam 3.375 GM in 0.9 % Sodium Chloride Mini Bag 100 ML IVPB SCH (08:05)
[2022-06-06] MEDS ORDERED: hydroCHLOROthiazide 25 MG TABLET PO SCH (09:00)
[2022-06-06 09:43] LABS: Basophils # 0.1 K/mcL (0.0-0.2); Basophils % 0.5 %; Eosinophils # 0.2 K/mcL (0.0-0.6); Eosinophils % 2.4 %; Hematocrit 30.6 % (35.3-44.9); Hemoglobin 9.9 g/dL (11.5-15.4); Immature Granulocytes % 0.5 % (0-4); Lymphocytes # 2.7 K/mcL (0.6-4.6); Lymphocytes % 26.5 %; Mean Corpuscular HGB Conc 32.4 g/dL (31.6-35.5); Mean Corpuscular Hemoglobin 29.2 pg (28.0-33.3); Mean Corpuscular Volume 90.3 fL (83.0-100.0); Mean Platelet Volume 9.6 fL (9.4-12.4); Monocytes % 9.5 %; Neutrophils # 6.2 K/mcL (1.6-8.9); Platelet Count 252 K/mcL (140-400); Red Blood Count 3.39 M/mcL (3.82-4.97); Red Cell Distribution Width 15.4 % (11.5-14.5); Segmented Neutrophils % 60.6 %; White Blood Count 10.2 K/mcL (4.3-11.1)
[2022-06-06 09:56] LABS: Calcium 8.3 mg/dL (8.6-10.3); Potassium 3.2 mEq/L (3.5-5.1)
[2022-06-06] MEDS ORDERED: Potassium Effervescent 25 MEQ TABLET.EFF PO ONE (13:09)
[2022-06-06] MEDS: 0.9 % Sodium Chloride 1,000 ML IVC SCH (16:21)
[2022-06-06] MEDS: Cefepime HCl 2,000 MG in 0.9 % Sodium Chloride Mini Bag 100 ML IVPB SCH (16:21)
[2022-06-07] MEDS: Acetaminophen 325 MG TABLET PO PRN (02:41)
[2022-06-07] MEDS: 0.9 % Sodium Chloride 1,000 ML IVC SCH (02:41)
[2022-06-07 03:04] LABS: Potassium 3.5 mEq/L (3.5-5.1)
[2022-06-07] MEDS: Cefepime HCl 2,000 MG in 0.9 % Sodium Chloride Mini Bag 100 ML IVPB SCH (04:56)
[2022-06-07] MEDS: *HR* Heparin 5,000 UNIT/ML VIAL SQ SCH ×2 (06:53→13:04)
[2022-06-07] MEDS: Ondansetron ODT 4 MG TAB.RAPDIS SL PRN (08:35)
[2022-06-07] MEDS ORDERED: NIFEdipine XL (24 HR) 30 MG TAB.ER.24 PO SCH (09:00)
[2022-06-07] MEDS: *HR* OxyCODONE/APAP 5/325 TABLET PO PRN ×2 (09:52→14:52)
[2022-06-07 12:00] VITALS: BP 122/74; PULSE 59; TEMP 98; O2SAT 96
== END 2022-06-07 15:10 | disposition home health service (06) | DRG 364 ==
LOC: 3ANU 07:46 → EMEROOARM 07:46 → SUATTDRO 15:40 → 3ANU 16:26
PROVIDERS: ADMIT Hospitalist; ATTEND Hospitalist